=== PATIENT | female | born 2000 | race Caucasian/White ===

== ENCOUNTER 2023-12-10 11:20 | Emergency (ER) | payer OTHER ==
[~2023-12-10] VITALS: Ht 144.8 cm; Wt 53.1 kg
[2023-12-10] MEDS ORDERED: Diphth,Pertuss(Acell),Tet Vac 0.5 ML VIAL IM ONE (12:35)
[2023-12-10] MEDS ORDERED: Monodox100 MG PO ×2 (13:11)
== END 2023-12-10 13:37 | disposition home or self-care (01) ==
LOC: ER 11:20
DX: S91.351A Open bite, right foot, initial encounter (principal); W54.0XXA Bitten by dog, initial encounter; Z88.0 Allergy status to penicillin
CPT/HCPCS: 12002; 73620; 90471; 90715; 96372-59; 99283-25

== ENCOUNTER → 2024-01-28 | Outpatient (CLI) | payer OTHER ==
[~2024-01-28] MED LIST: Monodox100 MG PO
[2024-01-28 19:56] LABS: Candida Group, PCR NOT DETECTED (NOT DETECT); Candida glabrata-krusei, PCR NOT DETECTED (NOT DETECT)
[2024-01-28 19:57] LABS: Bacterial Vaginosis PCR Positive (NEGATIVE)
[2024-01-31 15:50] LABS: APTIMA MEDIA TYPE Unisex Swab; C. TRACHOMATIS BY TMA Negative (Negative); N. GONORRHOEAE BY TMA Negative (Negative); SPECIMEN SOURCE Cervical
== END ==
LOC: LAB SHORT 15:32 → LAB 15:32
PROVIDERS: Emergency Medicine
DX: R35.0 Frequency of micturition (principal); N89.8 Other specified noninflammatory disorders of vagina
CPT/HCPCS: 87086; 87481; 87491; 87591; 87661; 87801

== ENCOUNTER → 2024-04-06 | Outpatient (CLI) | payer OTHER | LOC: LAB 13:56 → LAB SHORT 13:56 | DX: R39.15 Urgency of urination (principal) | CPT/HCPCS: 87086 ==

== ENCOUNTER → 2024-06-28 | Outpatient (CLI) | payer OTHER | LOC: LAB SHORT 11:07 → LAB 11:07 | DX: N39.0 Urinary tract infection, site not specified (principal) | CPT/HCPCS: 87077; 87086; 87186 ==